=== PATIENT | male | born 1965 | race Caucasian/White ===

== ENCOUNTER 2022-05-27 13:35 | Emergency (ER) | payer SELFPAY ==
--- NOTE | 2022-05-27 13:52 | ED.MALEGU ---
HPI - Male Genitourinary General Chief complaint: Urogenital-Male Stated complaint: Groin Pain Time Seen by Provider: 05/27/22 13:52 Source: patient Mode of arrival: ambulatory Limitations: no limitations History of Present Illness HPI Narrative: Mr. Robles is a 56-year-old male patient presenting to the clinic today with complaints of left groin pain x2 days. He reports couple weeks ago he was lifting some lawnmowers and injured his back and he went through some physical therapy and his back is improved but now he is complaining of pain to the left groin. He denies any penile discharge, blood with ejaculation, or testicular pain. He reports that he feels as though the pain is either in his left hip joint or in the groin. He denies any history of kidney stones. No history of inguinal hernia. No changes in bowels or any recent weight loss. He denies any new sexual partners and has been single and abstinent for 5 years. Related Data Home Medications Medication Instructions Recorded Confirmed No Home Medications 05/27/22 05/27/22 Allergies Allergy/AdvReac Type Severity Reaction Status Date / Time No Known Allergies Allergy Verified 05/27/22 14:13 Review of Systems Review of Systems: Pertinent positives per HPI. Patient denies any fever, chills, rash, headache, visual changes, dizziness, cough, runny nose, sore throat, shortness of breath, chest pain, palpitations, nausea, vomiting, diarrhea, constipation, abdominal pain, or any urinary issues. PMFSH Comments At the time of my signature, I reviewed and agree with the nursing past medical, surgical, social, and family history. There is no relevant family history pertinent to the patient complaint. Exam Narrative: general: Well-developed, well nourished, in no apparent distress. Head: Normocephalic, atraumatic. Cardio: Regular rate and rhythm, s1 and s2 normal, no murmur appreciated. Resp: Clear to auscultation bilaterally, no rhonchi, rales, wheezing or rubs. Abdomen: Soft, pliable, bowel sounds present in all quadrants, non-tender to palpation, no organomegly, no CVAT tenderness. : Normal circumcised male, no lesions on scrotum or penis, tenderness to palpation over the left inguinal area, negative for inguinal hernia with bearing down, nontender to palpation over the left testicle, epididymis, and vas deferens. Positive cremasteric reflexes bilaterally Course Course Emergency Course: Portions of this record may have been created with voice recognition software. Level of Care: Express Care Visit Vital Signs Vital signs: Vital signs reviewed MDM - Male Genitourinary MDM Narrative Medical decision making narrative: At the time of visit patient is resting comfortably on the exam table. No signs of testicular torsion but there is a possibility of a small inguinal hernia. UA positive for protein and bili. We will send for culture. Recommend the patient follow-up with PCP if symptoms persist for rule out of small inguinal hernia. Supportive measures were discussed with the patient he voiced understanding of discharge instructions. Differential Diagnosis Differential diagnosis: Likely urinary tract infection, epididymitis, prostatitis and inguinal hernia Discharge Plan Discharge Clinical Impression: Left inguinal pain Patient Disposition: Home, Self-Care Condition: Stable Instructions: Antibiotic Form Follow-up/Referrals: PHYSICIAN,HOME ENERGY AUDITOR [Primary Care Provider] - Quality NIHSS Nursing Documentation ED NIHSS nursing documentation: reviewed/agree
[2022-05-27 14:00] VITALS: BP 112/76; PULSE 77; RESP 16; TEMP 37.4; O2SAT 98
[2022-05-27 14:15] VITALS: BP 112/76; PULSE 77; RESP 16; TEMP 37.4; O2SAT 98
== END 2022-05-27 14:38 | disposition home or self-care (01) ==
PROVIDERS: Emergency Provider Nurse Practitioner Family
DX: R10.32 Left lower quadrant pain (principal)
CPT/HCPCS: 81003; 87086; 99213; G0463

== ENCOUNTER 2024-03-26 15:33 | Emergency (ER) | payer SELFPAY ==
[2024-03-26 15:46] VITALS: BP 96/68; PULSE 93; RESP 16; TEMP 36.8; O2SAT 99
== END 2024-03-26 16:17 | disposition left against medical advice (07) ==
PROVIDERS: Emergency Provider Registered Nurse
DX: Z53.21 Procedure and treatment not carried out due to patient leaving prior to being seen by health care provider (principal)
CPT/HCPCS: 99199